=== PATIENT | female | born 1985 | race African-American/Black ===

== ENCOUNTER 2016-07-15 12:51 | Emergency (ER) | payer OTHER ==
[2016-07-15 12:59] VITALS: BP 113/86; PULSE 73; TEMP 98.1; BMI 18.6
--- NOTE | 2016-07-15 13:59 | PDOC ---
History of Present Illness - General Chief Complaint: Pain Stated Complaint: ABD PAIN, VOMITING Time Seen by Provider: 07/15/16 13:31 History Source: Patient Exam Limitations: No Limitations - History of Present Illness Initial Comments: CHIEF COMPLAINT: 30 y/o afebrile female with no significant PMH here for concern for STDs. HISTORY OF PRESENT ILLNESS: The patient states that she had unprotected sex with a new partner a few weeks ago. She has had foul smelling, watery yellow discharge for the past 2 weeks and is concerned for STDs. She also admits to some nausea and vomiting. She denies f/c, genital lesions, TRENT, hematuria, dysuria. Vital signs on arrival are within normal limits. REVIEW OF SYSTEMS: GENERAL/CONSTITUTIONAL: No fever/chills. No weakness. No weight change. HEAD, EYES, EARS, NOSE AND THROAT: No change in vision. No ear pain or discharge. No sore throat. CARDIOVASCULAR: No chest pain or shortness of breath. RESPIRATORY: No cough, wheezing, or hemoptysis. GASTROINTESTINAL: +nausea and vomiting. no constipation, diarrhea. +foul smelling vaginal discharge. GENITOURINARY: No dysuria, frequency, or change in urination. MUSCULOSKELETAL: No joint or muscle swelling or pain. No neck or back pain. SKIN: No rash or easy bruising. NEUROLOGIC: No headache, vertigo, loss of consciousness, or loss of sensation. PHYSICAL EXAM: GENERAL: The patient is awake, alert, and fully oriented, in no acute distress. HEAD: Normal with no signs of trauma. ENT: Pupils equal, round and reactive to light, extraocular movements intact, sclera anicteric, conjunctiva clear. Neck supple. LUNGS: Clear to auscultation bilaterally. Normal excursion. No respiratory distress or use of accessory muscles. CV: RRR, S1/S2, no MRG. Cap refill < 2 sec. ABDOMEN: Soft, non-distended, TTP of suprapubic region. No rebound, guarding, rigidity. BACK: No CVA TTP b/l. VAGINAL: deferred EXTREMITIES: Normal range of motion, no edema. NEUROLOGICAL: Normal speech, normal gait. CN II-XII grossly intact. PSYCH: Normal mood, normal affect. SKIN: Warm, dry, normal turgor, no rashes or lesions noted. Past History - Past Medical History Allergies/Adverse Reactions: Allergies Allergy/AdvReac Type Severity Reaction Status Date / Time acetaminophen [From Percocet] AdvReac Mild Nausea Verified 07/15/16 12:53 oxycodone HCl [From Percocet] AdvReac Mild Nausea Verified 07/15/16 12:53 Home Medications: Ambulatory Orders Cephalexin [Keflex] 500 mg PO BID #14 capsule 07/15/16 Suicide Attempt (Hx): No Thyroid Disease: Yes (HYPO) - Immunization History Immunization Up to Date: Yes - Psycho/Social/Smoking Cessation Hx Anxiety: No Suicidal Ideation: No Smoking Status: Yes Smoking History: Current every day smoker Have you smoked in the past 12 months: Yes Number of Cigarettes Smoked Daily: 4 Information on smoking cessation initiated: No Hx Alcohol Use: No Drug/Substance Use Hx: No Substance Use Type: None *Physical Exam - Vital Signs Last Vital Signs Temp Pulse Resp BP Pulse Ox 98.1 F 73 20 113/86 99 07/15/16 12:55 07/15/16 12:55 07/15/16 12:55 07/15/16 12:55 07/15/16 12:55 Medical Decision Making - Medical Decision Making A/P: 30 y/o female here for STD check. She want empiric treatment. Plan is as follows: 1. hcg 2. UA/culture 3. GC/chlamydia hcg - negative UA +for UTI Will treat empirically for GC/chlamydia with IM ceftriaxone and PO azithro Will d/c with rx for keflex for uti Instructed her to drink plenty of fluids, inform all sexual partners, abstain from sex for 1 week and return to the ER with any worsening or concerning symptoms. The patient verbalizes understanding of all instructions, has no further questions and is awaiting discharge. *DC/Admit/Observation/Transfer Diagnosis at time of Disposition: Concern about STD in female without diagnosis UTI (urinary tract infection) Qualifiers: Urinary tract infection type: acute cystitis Hematuria presence: with hematuria Qualified Code(s): N30.01 - Acute cystitis with hematuria - Discharge Dispostion Disposition: HOME Condition at time of disposition: Good - Patient Instructions Printed Discharge Instructions: Facts About Sexually Transmitted Infections, How to Detect and Treat STDs, DI for Urinary Tract Infection (UTI) Additional Instructions: Discharge INstructions: -You were treated with IM ceftriaxone and PO azithromycin today for STDs; no further treatment is necessary -A prescription was sent to your pharmacy to treat a Urinary tract infection; please take entire 7 days -Drink plenty of fluids -Inform all sexual partners of your diagnosis -ABstain from sexual intercourse for week -Return to the ER with any worsening or concerning symptoms
[2016-07-15 14:08] LABS: URINE APPEARANCE CLOUDY; URINE BILIRUBIN NEGATIVE (NEGATIVE); URINE COLOR YELLOW; URINE GLUCOSE (UA) NEGATIVE (NEGATIVE); URINE KETONE NEGATIVE (NEGATIVE); URINE NITRITE NEGATIVE (NEGATIVE); URINE PROTEIN NEGATIVE (NEGATIVE); URINE UROBILINOGEN NEGATIVE E.U./dl (0.2-1.0)
[2016-07-15 14:09] LABS: URINE BLOOD 1+ (NEGATIVE); URINE LEUK ESTERASE 1+ (NEGATIVE)
[2016-07-15 14:16] LABS: URINE BACTERIA RARE /hpf (NONE SEEN); URINE MUCUS FEW; URINE RBC 21 /hpf (0-3); URINE WBC 9 /hpf (3-5); YEAST FEW
[2016-07-15] MEDS ORDERED: AZITHROMYCIN 1 GM PACKET PO ONE (14:51)
[2016-07-15] MEDS ORDERED: AZITHROMYCIN 1 GM PACKET ONE (15:12)
== END 2016-07-15 15:36 | disposition home or self-care (01) ==
LOC: JERFT 12:51
DX: N30.01 Acute cystitis with hematuria (principal); Z20.2 Contact with and (suspected) exposure to infections with a predominantly sexual mode of transmission
CPT/HCPCS: 36415; 81003; 81015; 84703; 87086; 87491; 87591; 99281-25